=== PATIENT | female | born 1955 | race Caucasian/White ===

== ENCOUNTER → 2024-03-20 | Outpatient (CLI) | payer MEDICARE ==
--- NOTE | 2024-03-20 13:21 | US ---
EXAMINATION TYPE: US kidneys/renal and bladder DATE OF EXAM: 03/20/2024 COMPARISON: NONE CLINICAL INDICATION: Female, 68 years old with history of R94.4 ABNORMAL RESULTS OF KIDNEY FUNCTION S TUDIES; Abnormal labs. Hx renal cysts. EXAM MEASUREMENTS: Right Kidney: 10.6 x 4.4 x 4.7 cm Left Kidney: 9.4 x 4.0 x 4.4 cm Right Kidney: Cysts seen with largest mid superior =2.0 x 2.0 x 2.3 cm Left Kidney: Cysts seen with largest lateral superior = 1.8 x n1.8 x 1.8 cm Bladder: anechoic, moderately distended Bilateral Jets not seen There is no evidence for hydronephrosis at this point in time. No nephrolithiasis is seen. No solid masses are identified. The urinary bladder is anechoic. Bilateral ureteral jets are seen. IMPRESSION: Simple renal cysts seen bilaterally.
== END | disposition home or self-care (01) ==
LOC: RADUSWWP 12:22
PROVIDERS: ATTEND Family Medicine
DX: R94.4 Abnormal results of kidney function studies (principal); N28.1 Cyst of kidney, acquired
CPT/HCPCS: 76770